=== PATIENT | female | born 1995 | race African-American/Black ===

== ENCOUNTER 2018-09-12 22:37 | Emergency (ER) | payer OTHER ==
[~2018-09-12] VITALS: Ht 172.7 cm; Wt 84.1 kg
[2018-09-12] MEDS ORDERED: ACETAMINOPHEN 325 MG TAB PO ONE (23:00)
[2018-09-12] MEDS ORDERED: METOCLOPRAMIDE 10 MG TAB PO ONE (23:00)
[2018-09-13] MEDS ORDERED: LIDOCAINE 1% MDV 20ML VIAL IM ONE
--- NOTE | 2018-09-13 00:04 | REPVR ---
EXAM: CT Head Without Contrast EXAM DATE/TIME: 09/12/2018 11:51 PM CLINICAL HISTORY: 23 years old, female; Injury or trauma; Fall; Additional info: Syncope, fell onto head TECHNIQUE: Axial computed tomography images of the head/brain without contrast. All CT scans at this facility use at least one of these dose optimization techniques: automated exposure control; mA and/or kV adjustment per patient size (includes targeted exams where dose is matched to clinical indication); or iterative reconstruction. COMPARISON: No relevant prior studies available. FINDINGS: There are no intra-or extra-axial hemorrhages or fluid collections. There is no mass effect or midline shift. Ventricles are symmetrical and nondilated for age. There are no focal parenchymal abnormalities. No calvarial fractures. IMPRESSION: No acute intracranial process. No intracranial hemorrhage. Electronically signed by: Naveen Nunn On 09/13/2018 00:04:07 AM
[2018-09-13] MEDS ORDERED: NORCO, ANEXSIA 5/325MG TABLET (HYDROcodone/ACETAMINOPHEN) PO ONE (00:30)
[2018-09-13 00:58] VITALS: BP 132/66
--- NOTE | 2018-09-13 01:04 | REP ---
Clinical: Trauma. Technique: Frontal view of the chest with multiple views of the bilateral hemithoraces. Findings: Frontal view of the chest demonstrates no acute cardiopulmonary process. Multiple views of the right and left hemithorax demonstrates no obvious acute rib fracture or pathology. Impression: Normal bilateral rib series Electronically Signed by Kuldeep Ramey MD 09/13/2018 12:55 A
--- NOTE | 2018-09-14 17:24 | ECGEPIP ---
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
== END 2018-09-13 01:09 | disposition home or self-care (01) ==
LOC: M ED 22:37
DX: R55 Syncope and collapse (principal); S09.90XA Unspecified injury of head, initial encounter; S01.511A Laceration without foreign body of lip, initial encounter; X58.XXXA Exposure to other specified factors, initial encounter; Y92.009 Unspecified place in unspecified non-institutional (private) residence as the place of occurrence of the external cause; Y93.72 Activity, wrestling; I49.9 Cardiac arrhythmia, unspecified

== ENCOUNTER 2018-10-26 11:22 | Emergency (ER) | payer OTHER ==
[~2018-10-26] VITALS: Ht 175.3 cm; Wt 89.2 kg
[2018-10-26] MEDS ORDERED: ACET1TAB55 PO (11:26)
[2018-10-26 12:01] LABS: BASO # 0.1 10^3/uL (0.0-0.2); BASO % 0.9 % (0.0-1.0); EOS # 0.2 10^3/uL (0.0-0.50); EOS % 2.1 % (0.0-3.0); HEMATOCRIT 36.7 % (36.0-47.0); HEMOGLOBIN 11.7 g/dl (12.0-15.5); LYMPH # 2.4 10^3/uL (1.5-6.5); LYMPH % 25.8 % (24.0-44.0); MEAN CORPUSCULAR HEMOGLOBIN 26.4 pg (27.0-33.0); MEAN CORPUSCULAR HGB CONC 31.9 g/dl (32.0-36.5); MEAN CORPUSCULAR VOLUME 82.7 fl (80.0-96.0); MONO # 0.8 10^3/uL (0.0-0.8); MONO % 8.7 % (0.0-5.0); NEUTROPHILS # 5.7 10^3/uL (1.8-7.7); NEUTROPHILS % 62.2 % (36.0-66.0); PLATELET COUNT, AUTOMATED 300 10^3/uL (150-450); RED BLOOD COUNT 4.44 10^6/uL (4.00-5.40); WHITE BLOOD COUNT 9.1 10^3/uL (4.0-10.0)
--- NOTE | 2018-10-26 12:27 | REP ---
Chest x-ray: Two views. History: Chest pain. . Comparison study: September 12 1018 . Findings: The lungs are well inflated and free of infiltrate. The pleural angles are sharp. The heart size is normal. Pulmonary vasculature is not increased. No significant bony abnormality is seen. Impression: Negative chest x-ray. Electronically Signed by Fernando Morrison MD 10/26/2018 12:18 P
[2018-10-26 12:37] LABS: ALBUMIN 4.4 GM/DL (3.2-5.2); ALT/SGPT 34 U/L (12-78); BILIRUBIN,DIRECT 0.1 MG/DL (0.0-0.2); BILIRUBIN,TOTAL 0.4 MG/DL (0.2-1.0); BLOOD UREA NITROGEN 13 MG/DL (7-18); CALCIUM LEVEL 9.2 MG/DL (8.5-10.1); CARBON DIOXIDE LEVEL 25 MEQ/L (21-32); CHLORIDE LEVEL 107 MEQ/L (98-107); CK-MB VALUE MASS < 1.0 NG/ML (<3.6); CPK CREATINE PHOSPHOKINASE 231 U/L (26-192); CREATININE FOR GFR 0.84 MG/DL (0.55-1.30); GLOMERULAR FILTRATION RATE > 60.0 (>60); GLUCOSE, FASTING 84 MG/DL (70-100); LIPASE 140 U/L (73-393); MB/CK RELATIVE INDEX 0.43 (< OR =4); POTASSIUM SERUM 3.8 MEQ/L (3.5-5.1); SODIUM LEVEL 140 MEQ/L (136-145); TOTAL PROTEIN 8.2 GM/DL (6.4-8.2); TROPONIN I < 0.02 NG/ML (< 0.10)
[2018-10-26 13:35] VITALS: BP 117/76
--- NOTE | 2018-10-26 20:35 | ECGEPIP ---
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 Order Number: [id number] Reading MD: Rajesh Frank Measurements Intervals [place] Rate: 57 P: 3 PA: 144 QRS: 35 QRSD: 86 T: 18 QT: 419 QTc: 409 Interpretive Statements SINUS BRADYCARDIA Rate decreased from tracing done 09-12-18 Electronically Signed On 10-26-2018 20:35:24 EST by Rajesh Frank
== END 2018-10-26 13:36 | disposition home or self-care (01) ==
LOC: M ED 11:22
DX: R07.89 Other chest pain (principal); R06.02 Shortness of breath; Z88.8 Allergy status to other drugs, medicaments and biological substances